=== PATIENT | female | born 1980 | race African-American/Black ===

== ENCOUNTER 2017-01-28 09:17 | Emergency (ER) | payer OTHER ==
[~2017-01-28 09:17] MED LIST: ALBUTEROL17 GM INH; BACTRIM DS TABL1 TA1 PO; BENZONATATE PO; COMBIVENT U/D3 M2 INH; DELTASONE20 MG PO; DESYREL50 MG PO; FLEXERIL10 MG PO; GABAPENTIN300 M2 PO; HEARTBURN RELIE10 M1 PO; HYDROCODON-ACE1 EAC5 PO; LYRICA50 MG PO; PAXIL PO; PHENERGAN W/CO120 ML PO; PREDNISONE PO; PROPRANOLOL HCL10 M1 PO; PTU; SPIRIVA18 MCG INH; SYMBICORT INH; TAMIFLU75 M1 PO; TOPAMAX PO; ZITHROMAX500 MG PO; [UNRECOGNIZED DRUG - OTHER]
== END 2017-01-28 10:37 | disposition left against medical advice (07) ==
LOC: CED 09:17
DX: Z53.21 Procedure and treatment not carried out due to patient leaving prior to being seen by health care provider (principal)

== ENCOUNTER 2017-05-19 09:24 | Emergency (ER) | payer OTHER ==
[~2017-05-19] VITALS: Ht 162.6 cm; Wt 107.0 kg
--- NOTE | ~2017-05-19 | CT4 ---
[facility] A Service of [facility] RADIOLOGY TEXT RESULTS PATIENT: MARY OLMSTEAD LOCATION: [facility] : 84 UNIT #: [id number] AGE: [address]: Carri Randle SEX: F ORDER DR: [id number] [facility] [address] [place], [place] [address] [id number] E MR#: [id number] #: [id number] NAME: MARY OLMSTEAD : 1980 SEX: F STUDY DATE/TIME: 05/19/2017 10:39 UNIT: [facility] ROOM: STUDY DESCRIPTION: CT Abd and Pelv Wo Cont Attending Physician: Carri Randle Pa-C Ordering Physician: Ed Mehul Snyder M.D. Primary Care Physician: Generic Doctor Not In System MEDICAL IMAGING REPORT This report is preliminary unless electronic signature is present EXAM CT abdomen and pelvis without contrast. Date: 05/19/2017. HISTORY Right flank pain for 3 days. Back pain and spasms. History of sarcoidosis. COMPARISON No previous CT abdomen and pelvis at this institution for comparison. Correlation is made to CT chest 10/30/2016. PROCEDURE 3 mL noncontrast axial images through the pelvis. Enteric contrast not administered. Sagittal coronal reformed images were obtained. This CT exam was performed with one or more of the following radiation dose reduction techniques: automatic exposure control, adjustment of mA and/or kV according to patient size, and iterative reconstruction. FINDINGS Abdomen findings: There is band-like atelectasis within the lung bases, right middle lobe and lingula. No basilar consolidation. Benign calcified granulomatous changes of the right infrahilar region. The liver, gallbladder, spleen, pancreas, adrenals and right kidney are normal. A 5 mL nonobstructing stone is seen within the left mid kidney. No ureteral stone, hydronephrosis or perinephric inflammation is seen on either side. Limited evaluation bowel due to lack of enteric contrast. No focal bowel inflammation is seen. The appendix appears normal. [facility] A Service [facility] RADIOLOGY TEXT RESULTS PATIENT: MARY OLMSTEAD LOCATION: [facility] : 84 UNIT #: [id number] AGE: [address]: Carri Randle SEX: F ORDER DR: Pelvis findings: Small calcified phleboliths are present bilaterally in the pelvis. Urinary bladder, uterus and rectum are normal. No pelvic adenopathy or free fluid is seen. No acute osseous abnormalities are identified. IMPRESSION 1. No acute findings in the abdomen or pelvis. No CT explanation for the patient's right flank pain. 2. The appendix is normal. 3. 5 mm nonobstructing left renal stone. 4. Mild band-like atelectatic changes in the lung bases. Dictated by... Zandra Schofield M.D. THIS IS AN ELECTRONICALLY VERIFIED REPORT Zandra Schofield M.D. at 05/20/2017 1:11 PM NATHAN/mayito TD: 05/19/2017 14:18 JOB #: [id number] MEDICAL IMAGING REPORT Page 1 of 1 COPY
--- NOTE | ~2017-05-19 | CR181 ---
[facility] A Service of [facility] RADIOLOGY TEXT RESULTS PATIENT: MARY OLMSTEAD LOCATION: [facility] : 84 UNIT #: [id number] AGE: [address]: Carri Randle SEX: F ORDER DR: [id number] [facility] [address] [place], [place] [address] [id number] E MR#: [id number] #: [id number] NAME: MARY OLMSTEAD : 1980 SEX: F STUDY DATE/TIME: 05/19/2017 10:27 UNIT: [facility] ROOM: STUDY DESCRIPTION: CR Lumbar Spine 2 or 3 Views Attending Physician: Carri Randle Pa-C Ordering Physician: Ed Doc Charli Snyder Primary Care Physician: Generic Doctor Not In System MEDICAL IMAGING REPORT This report is preliminary unless electronic signature is present EXAM Lumbar spine series 05/19/2017, 10:27 hours. HISTORY 3-day history of low back pain, back spasms and left leg swelling. No injury. History of fibromyalgia. COMPARISON Lumbar spine series 11/08/2007, CT abdomen and pelvis 05/19/2017 FINDINGS There are 5 non-rib bearing lumbar type vertebrae which are normally aligned. Vertebral body heights are normal and there is no fracture. There is minimal disc height loss at L5-S1 unchanged. There is no significant facet change. Note is made of a calcification projecting over the lower pole left kidney consistent with a nonobstructing stone seen on CT today as well. IMPRESSION 1. Minimal disc height loss L5-S1 similar to 11/08/2007. There is no fracture or subluxation. 2. Nonobstructing stone projects over the lower pole left kidney. Dictated by... Mihaela Montoya M.D. THIS IS AN ELECTRONICALLY VERIFIED REPORT Mihaela Montoya M.D. at 05/19/2017 2:33 PM SALONI/mayito TD: 05/19/2017 13:41 JOB #: [id number] [facility] A Service of [facility] RADIOLOGY TEXT RESULTS PATIENT: MARY OLMSTEAD LOCATION: [facility] : 84 UNIT #: [id number] AGE: [address]: Carri Randle SEX: F ORDER DR: MEDICAL IMAGING REPORT Page 1 of 1 COPY
[2017-05-19 10:17] LABS: URINE SOURCE CLEAN CATCH
[2017-05-19 10:22] LABS: URINE APPEARANCE CLEAR; URINE BILIRUBIN NEG (NEG); URINE BLOOD 3+ (NEG); URINE COLOR YELLOW; URINE GLUCOSE NEG (NEG); URINE KETONE NEG (NEG); URINE LEUKOCYTE ESTERASE TRACE (NEG); URINE NITRATE NEG (NEG); URINE PROTEIN TRACE (NEG); URINE SPECIFIC GRAVITY 1.025 (1.003-1.035)
[2017-05-19 10:24] LABS: URBCS1 AUWI 50-100 /[HPF] (0-2); URINE BACTERIA AUWI NEG (NEGATIVE); URINE SQUAMOUS EPITHELIAL CELL OCC /[HPF]
[2017-05-19 10:28] LABS: CULTURE INDICATED? NO
== END 2017-05-19 12:23 | disposition home or self-care (01) ==
LOC: CED 09:24
PROVIDERS: Physician Assistant
DX: S39.012A Strain of muscle, fascia and tendon of lower back, initial encounter (principal); J45.909 Unspecified asthma, uncomplicated; M79.7 Fibromyalgia; D86.9 Sarcoidosis, unspecified; Z98.51 Tubal ligation status; X58.XXXA Exposure to other specified factors, initial encounter
CPT/HCPCS: 72100; 74176; 81003; 84703; 96372; 99284; J1885